=== PATIENT | male | born 1935 | race Two or more races ===

== ENCOUNTER 2017-02-08 14:00 | Emergency (ER) | payer MEDICARE ==
[~2017-02-08 14:00] MED LIST: CEPH-512 PO; METO-272 PO; NAPR250T PO; RIVA20TA PO
[2017-02-08 14:12] VITALS: BP 135/55; PULSE 80; RESP 14; O2SAT 100
--- NOTE | 2017-02-08 14:22 | ED.REPORT ---
HPI-Trauma Minor / Fall Date of Service February 08, 2017 ED Provider: Sirena Segovia History of Present Illness: sleeping in bed and turned and fall. on coumadin for heart condition. primary care is olivier. stroke 12/2016, in [facility] Nursing Notes Stated Complaint: HEAD INJURY Chief Complaint: Head, Face, Neck Trauma Nursing Notes Reviewed: Yes Allergies: Coded Allergies: No Known Allergies (Unverified , 07/05/16) Scheduled Cephalexin (Keflex) 500 Mg Capsule 500 MG PO QID Metoprolol Succinate ER (Metoprolol Succinate ER) 50 Mg Tab.er.24h 50 MG PO DAILY Naproxen (Naproxen) 250 Mg Tablet 500 MG PO BIDWM Rivaroxaban (Xarelto) 20 Mg Tablet 20 MG PO DAILYWD General Time Seen by MD: 14:21 Chief Complaint Fall Hx Obtained From: Other family... (Granddaughter) Onset Occurred: Just prior to arrival Caused by: Accidental Context: Occurred at: Home injury Location: Eye left Past Medical History Past Medical History Denies: Asthma (peG ) Past Surgical History PEG tube for swallowing difficulties Smoking History Never Smoker Social History Alcohol Use: Denies alcohol use Drug Use: Denies drug use Occupation in [employer] 02/08/2017 Review of Systems Basic Review of Systems Cardiovascular: No chest pain, No dyspnea on exertion, No orthopnea, No parox noct dyspnea, No palpitations Endocrine: No cold intolerance, No heat intolerance, No weight gain, No weight loss Psychiatric: Normal thought content Physical Exam Initial Vital Signs Vital Signs (First) Date Time Temp Pulse Resp B/P Pulse Ox O2 Delivery O2 Flow Rate FiO2 02/08/17 14:12 36.8 80 14 135/55 100 Room Air Initial VS: Reviewed, Vital signs normal Head / Eyes: Atraumatic, Normocephalic, PERRL ENT: Mucous membranes moist, Conjunctiva normal, No scleral icterus Respiratory: Breath sounds normal, Clear to auscultation, No respiratory distress Cardiovascular: Regular rate & rhythm, Heart sounds normal, Intact distal pulses Abdomen / GI: Soft, Non-tender, No guarding, No rebound, No distention Back: No CVA tenderness Lymphatic: No lymphadenopathy Extremities: Vascular intact, Neuro intact, No swelling, No tenderness Skin: Warm, Dry, No cyanosis Neurologic: Alert, Oriented, Nonfocal Psychiatric: Mood/affect normal, Behavior normal, Normal thought content General/Constitutional: Awake, Alert, No acute distress, Well appearing, Well developed, Well hydrated Neck: Atraumatic, Supple, No meningismus, Full range of motion Head / Eyes: Atraumatic, Normocephalic, PERRL, EOMI, No nystagmus Respiratory / Chest: Atraumatic, Breath sounds NL, Breath sounds = bilat, No respiratory distress Cardiovascular: Heart rate NL, Regular rhythm, Heart sounds NL, No gallop Interpretation & Diagnostics Lab Results Interpretation Result Diagram: 02/08/17 1505 02/08/17 1505 Test 02/08/17 15:05 White Blood Count 9.0th/mm3 (3.8-10.1) Red Blood Count 4.54mil/mm3 (4.40-5.80) Hemoglobin 12.6g/dL (13.8-17.2) Hematocrit 39.8% (41.0-50.0) Mean Corpuscular Volume 87.7fL (81-100) Mean Corpuscular Hemoglobin 27.8pg (27.0-35.0) Mean Corpuscular Hemoglobin Concent 31.7% (32.0-37.0) Red Cell Distribution Width 14.8% (12.3-15.4) Platelet Count 268bil/L (150-400) Neutrophils (%) (Auto) 61.4% (40-74) Lymphocytes (%) (Auto) 27.9% (14-46) Monocytes (%) (Auto) 4.3% (4-12) Eosinophils (%) (Auto) 5.8% (0-5) Basophils (%) (Auto) 0.4% (0-3) Prothrombin Time 22.4sec (8.1-12.5) Prothromb Time International Ratio 2.06ratio Sodium Level 139mEq/L (134-144) Potassium Level 4.8mEq/L (3.5-5.2) Chloride Level 101mEq/L (97-108) Carbon Dioxide Level 26mmol/L (18-29) Blood Urea Nitrogen 30mg/dL (8-27) Creatinine 0.62mg/dL (0.76-1.27) Estimat Glomerular Filtration Rate 131mL/min (>59) Glucose Level 134mg/dL (60-99) Calcium Level 9.7mg/dL (8.5-10.1) Total Bilirubin 0.4mg/dL (0.0-1.2) Aspartate Amino Transf (AST/SGOT) 38U/L (0-50) Alanine Aminotransferase (ALT/SGPT) 39U/L (0-44) Alkaline Phosphatase 76U/L (25-160) Total Protein 7.9g/dL (6.4-8.4) Albumin 3.3g/dL (3.4-5.0) Hold Harrison Top Tube Received (Received) X-Ray Interpretation Xray Interpretation: PROCEDURE: X-RAY CERVICAL SPINE, 2 OR 3 VIEWS INDICATIONS: fall from bed TECHNIQUE: 3 view(s) of the cervical spine were acquired. COMPARISON: None. FINDINGS: Bones: No fractures or dislocations to the C6-C7 level. The lateral masses of C1 appear intact on the odontoid view. Severe osteopenia and degenerative changes are present throughout the cervical spine. There is ankylosis and subchondral cystic changes at C3-4. There is marked osteophytosis and intervertebral disc space narrowing throughout. No suspicious bony lesions. Soft tissues: No prevertebral soft tissue swelling. IMPRESSION: Osteopenia severe degenerative changes. No definite fracture. If there is high clinical suspicion for occult fracture, CT or MRI of the cervical spine is recommended. Normal Dictated by: Carole Mclean M.D. on 02/08/2017 at 15:55 Approved by: Carole Mclean M.D. on 02/08/2017 at 15:57 CT Head Interpretation ROCEDURE: CT BRAIN WITHOUT CONTRAST ([id number]) INDICATIONS: on coumadin fall from bed TECHNIQUE: Noncontrast 4.5 mm thick angled axial sections acquired from the foramen magnum to the vertex, with coronal reformats. COMPARISON: None. FINDINGS: Image quality: Excellent. CSF spaces: Basal cisterns are patent. No extra-axial fluid collections. The ventricles are symmetric in size and shape. Brain: No intracranial bleeds or masses. There is marked cerebral volume loss for age, with resultant ventricular and sulcal prominence. There are extensive periventricular and deep white matter chronic small vessel ischemic changes. Encephalomalacia is present within the right frontal lobe and the left occipital lobe consistent with prior infarct. There is intracranial internal carotid artery atherosclerosis. Skull and face: Calvarium and visualized facial bones appear intact, without suspicious lesions. Sinuses: Visualized sinuses and mastoids are clear. IMPRESSION: 1. No acute intracranial findings. 2. 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 Dictated by: Carole Mclean M.D. on 02/08/2017 at 15:07 Approved by: Carole Mclean M.D. on 02/08/2017 at 15:10 Procedures Laceration Management Time: 17:50 Procedure Performed by: [facility] pract Consent / Setup / Site Prep: Informed consent provided, Consent from patient , Hand hygiene observed, Stand sterile technique Location of Wound: left eye Wound Length: 1 cm Local Anesthesia: Lidocaine 1%, 2cc, 27g needle Digital Block: No Wound Preparation: Normal saline Irrigation: 150 cc Repair Skin: ___ O (5.) # Sutures - Skin: 2 Post-Procedure / Complications: Antibiotic oint applied, Dressing applied, No complications, Condition improved, Tolerated procedure well, Patient stable Re-Eval/Medical Decision Med Decision/Clinical Course 82 year old male presents for evualation after fall from bed at [facility]. Patient is at baseline behavior [facility]. Head CT is negative as is x-rays of c spine. Labs are unremarkable. No sign of head injury Discharge & Departure Impression: Primary Impression: Facial laceration Encounter type: initial encounter Qualified Code: S01.81XA - Laceration without foreign body of other part of head, initial encounter Disposition: Home Patient Instructions: Laceration (GEN) Additional Instructions: His INR is at 2.06. That is right where it needs to be. His hemoglobin is at 12.6, mildly low, normal is at 13.8. His hematocrit is at 39.8, mildly low, normal is 41.0. This may be his baseline. I do not have any prior values to compare this to. The brain CT does not show any sign of acute bleed. The neck CT is normal. Continue with your regular medications. Sutures out in 5 days. Use bacitracin to the site 2 to 3 times a day. I am sorry you fell. Referrals: Alexus Nixon MD EDSupervising Provider for APC: Dean Ramirez MD copies to: Alexus Nixon MD, Sue ARNP February 08, 2017 14:22
[2017-02-08 15:09] LABS: BASOPHILS % (AUTO) 0.4 % (0-3); EOSINOPHILS % (AUTO) 5.8 % (0-5); MONOCYTES % (AUTO) 4.3 % (4-12); Mean Corpuscular Hemoglobin 27.8 pg (27.0-35.0); Mean Corpuscular Volume 87.7 fL (81-100); NEUTROPHILS % (AUTO) 61.4 % (40-74); Platelet Count 268 bil/L (150-400)
--- NOTE | 2017-02-08 15:11 | DRSVH ---
PROCEDURE: CT BRAIN WITHOUT CONTRAST ([id number]) INDICATIONS: on coumadin fall from bed TECHNIQUE: Noncontrast 4.5 mm thick angled axial sections acquired from the foramen magnum to the vertex, with c oronal reformats. COMPARISON: None. FINDINGS: Image quality: Excellent. CSF spaces: Basal cisterns are patent. No extra-axial fluid collections. The ventricles are symmet tae in size and shape. Brain: No intracranial bleeds or masses. There is marked cerebral volume loss for age, with resulta nt ventricular and sulcal prominence. There are extensive periventricular and deep white matter fast food attendant rai small vessel ischemic changes. Encephalomalacia is present within the right frontal lobe and the left occipital lobe consistent with prior infarct. There is intracranial internal carotid artery ath erosclerosis. Skull and face: Calvarium and visualized facial bones appear intact, without suspicious lesions. Sinuses: Visualized sinuses and mastoids are clear. IMPRESSION: 1. No acute intracranial findings. 2. Findings likely associated with microvascular ischemic changes and old right frontal and left occi pital lobe infarct. Dictated by: Carole Mclean M.D. on 02/08/2017 at 15:07 Approved by: Carole Mclean M.D. on 02/08/2017 at 15:10
[2017-02-08 15:31] LABS: INR 2.06 ratio
--- NOTE | 2017-02-08 15:59 | DRSVH ---
PROCEDURE: X-RAY CERVICAL SPINE, 2 OR 3 VIEWS INDICATIONS: fall from bed TECHNIQUE: 3 view(s) of the cervical spine were acquired. COMPARISON: None. FINDINGS: Bones: No fractures or dislocations to the C6-C7 level. The lateral masses of C1 appear intact on t he odontoid view. Severe osteopenia and degenerative changes are present throughout the cervical spi ne. There is ankylosis and subchondral cystic changes at C3-4. There is marked osteophytosis and inte rvertebral disc space narrowing throughout. No suspicious bony lesions. Soft tissues: No prevertebral soft tissue swelling. IMPRESSION: Osteopenia severe degenerative changes. No definite fracture. If there is high clinical s uspicion for occult fracture, CT or MRI of the cervical spine is recommended. Normal Dictated by: aCrole Mclean M.D. on 02/08/2017 at 15:55 Approved by: Carole Mclean M.D. on 02/08/2017 at 15:57
== END 2017-02-08 16:20 | disposition home or self-care (01) ==
LOC: EDUNIT# 14:00 → EDBD 14:00 → SED 14:00
DX: S01.81XA Laceration without foreign body of other part of head, initial encounter (principal); W06.XXXA Fall from bed, initial encounter; Y93.84 Activity, sleeping; Y92.122 Bedroom in nursing home as the place of occurrence of the external cause; Y99.8 Other external cause status; Z79.01 Long term (current) use of anticoagulants